=== PATIENT | female | born 1940 | race Caucasian/White ===

== ENCOUNTER 2016-11-06 14:36 | Observation (INO) ==
[2016-11-06] MEDS ORDERED: Ondansetron 4 MG/2 ML VIAL IV ONE (15:30)
[2016-11-06] MEDS ORDERED: 0.9 % Sodium Chloride 1,000 ML IVC ONE (15:30)
--- NOTE | 2016-11-06 15:40 | Emergency Department Note ---
Disposition Clinical Impression: Near syncope, Unstable angina Disposition: Admitted As Inpatient Condition: Good Time of Disposition: 18:13 General Adult HPI - General Chief complaint: ED Dizziness Stated complaint: BP low/lightheaded/dizzy Time Seen by Provider: 11/06/16 14:56 Source: patient Mode of arrival: ambulatory Limitations: no limitations Nursing Notes Reviewed: Yes Vital Signs Reviewed: Yes - History of Present Illness HPI Narrative: 76-year-old female history of chronic atrial fibrillation on Xarelto and metoprolol, hypertension, congestive heart failure presents to the ED with lightheadedness and near syncope. She reports on night she is being getting increasingly more lightheaded having the feeling of passing out. This is worse with sudden head movements as well as with walking. She denies any loss of consciousness, fall or head trauma. It has been getting progressively worse and she has also noticed some intermittent chest pain. Reports this is been ongoing for the past several weeks however now whenever he tries to exert herself such as just walking pain is worse and she needs to sit. Denies any history of stroke. Denies any history of blood clots. Denies any history of cardiac ischemic disease. She has been increasingly more nauseated with only a few episodes of emesis. She has only been eating saltine crackers over the last 24 hours. Reports that are cardiologists ordered to come be evaluated if these symptoms persist. Last stress test and heart catheterization performed several years ago were normal. Iron Piler is Dr. Reddy and Sheila Trent. Pain Scale: 5 - Related Data Home Medications Medication Instructions Recorded Confirmed Rivaroxaban [Xarelto] 20 mg PO HS 10/27/15 11/06/16 Acetaminophen [Tylenol Arthritis] 650 mg PO HS 11/06/16 11/06/16 Furosemide [Lasix] 20 mg PO HS 11/06/16 11/06/16 Metoprolol XL (24 HR) Succ [Toprol 50 mg PO HS 11/06/16 11/06/16 XL] Allergies Allergy/AdvReac Type Severity Reaction Status Date / Time Hydromorphone Allergy Unresponsiv Verified 12/21/15 12:42 e piroxicam [From Feldene] AdvReac Nausea Verified 12/21/15 12:42 All systems ED: reviewed and negative except as stated. Constitutional: Denies: fever, chills Cardiovascular: Reports: chest pain, dyspnea on exertion. Denies: palpitations Respiratory: Reports: dyspnea. Denies: cough Gastrointestinal: Reports: nausea, vomiting. Denies: abdominal pain, diarrhea, melena, hematochezia Genitourinary: Denies: urgency, dysuria Musculoskeletal: Denies: back pain, neck pain Integumentary: Denies: rash, abrasion Neurological: Reports: weakness. Denies: headache, confusion Past Medical History - Past Medical History Attestation: Yes The following information was validated with the patient. 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 - Social History Smoking Status: Never smoker Smokeless Tobacco Status: No Alcohol use: Reports: none Drug use: Reports: none Physical Exam - General Limitations: no limitations General appearance: alert, in no apparent distress - Head Head exam: atraumatic, normocephalic, normal inspection - Eye Eye exam: Present: normal appearance, PERRL, EOMI - ENT ENT exam: normal exam, normal oropharynx, mucous membranes dry - Neck Neck exam: Present: normal inspection, full ROM, trachea midline - Chest Chest inspection: Present: normal inspection, symmetric chest wall rise - Respiratory Respiratory exam: Present: normal lung sounds bilaterally. Absent: respiratory distress, wheezes - Cardiovascular Cardiovascular exam: Present: regular rate, irregular rhythm, normal heart sounds. Absent: systolic murmur, diastolic murmur - Abdominal Exam Abdominal exam: Present: soft, Non-Tender. Absent: tenderness, distention, guarding, rebound, rigidity - Extremities Exam Extremities exam: Present: normal inspection, full ROM, normal capillary refill. Absent: tenderness, pedal edema, calf tenderness - Neurological Exam Neurological exam: Present: alert, oriented X3, CN II-XII intact - Expanded Neurological Exam Patient oriented to: Present: person, place, time Speech: Present: fluid speech Cranial nerves: EOM function (II, III, IV, ): Normal, facial sensation (V): Normal, facial palsy (VII): Normal, gag reflex (IX): Normal, spinal accessory function (XI): Normal, tongue deviation (XII): Normal Cerebellar function: finger to nose: Normal, heel to cobos: Abnormal Left, Abnormal Right (limited to due arthritis in the legs) Motor strength - LUE: 5/5 Motor strength - RUE: 5/5 Motor strength - LLE: 5/5 Motor strength - RLE: 5/5 Upper motor neuron exam: tao neglect: Absent bilaterally, pronator drift: Absent bilaterally Sensory exam upper extremity: light touch: Normal Sensory exam lower extremity: light touch: Normal - Psychiatric Psychiatric exam: Present: normal affect, normal mood - Skin Skin exam: Present: warm, dry, intact, normal color. Absent: rash Course Course Narrative: 76-year-old female presents to the ED with complaints of chest pain dizziness and lightheadedness with nausea and vomiting. Over the past few days she has been experiencing lightheadedness with some associated chest pain. She takes her alto for atrial fibrillation. She denies any frequent or recent falls. She is tachycardic on initial presentation and his afebrile. Patient appears in no acute distress. The mucosal membranes appear dry. Heart is irregularly irregular. Lungs are clear to auscultation bilaterally abdomen is soft nontender nondistended. Neurologic exam is normal without any focal neural deficits. Cardiac workup initiated. EKG shows atrial fibrillation with normal ventricular response. - Reevaluation(s) Reevaluation #1: Patient attempted to go to the bathroom and experience dull pressure in the center of her chest which is different than before. Otherwise her labs look normal. EKG shows atrial fibrillation normal ventricular response [address] changes. Troponin is negative. Given these symptoms will likely admit for the near syncope and her unstable angina. Urine appears contaminated but concerning with few bacteria and some leuk esterase. Will not treat for UTI. Time: 17:06 - Consultations Consultation #1: Spoke with on-call hospitalist chelsy Davis to admit for near syncope and chest pain/unstable angina. No further orders at this time Time: 18:13 Vital Signs Temperature 97.7 F 11/06/16 14:38 Pulse Rate 105 11/06/16 14:38 Respiratory Rate 18 11/06/16 14:38 Blood Pressure 152/84 11/06/16 14:38 O2 Sat by Pulse Oximetry 95 11/06/16 14:38 Temperature 98.6 F 11/06/16 19:08 Pulse Rate 99 11/06/16 19:08 Respiratory Rate 20 11/06/16 19:08 Blood Pressure 165/65 11/06/16 19:08 O2 Sat by Pulse Oximetry 92 L 11/06/16 19:08 Oxygen Delivery Oxygen Delivery Room Air Medical Decision Making - Medical Records Medical records reviewed: Yes I reviewed the patient's medical records. - Lab Data Lab results reviewed: Yes I reviewed the patient's lab results. Result diagrams: 11/06/16 15:43 11/06/16 15:43 Lab Results 11/06/16 11/06/16 11/06/16 Range/Units 15:43 15:43 15:43 WBC 7.5 (4.3-11.1) K/mcL RBC 5.46 H (3.82-4.97) M/mcL Hgb 16.3 H (11.5-15.4) g/dL Hct 50.8 H (35.3-44.9) % MCV 93.0 (83.0-100.0) fL MCH 29.9 (28.0-33.3) pg MCHC 32.1 (31.6-35.5) g/dL RDW 13.1 (11.5-14.5) % Plt Count 230 (140-400) K/mcL MPV 10.6 (9.4-12.4) fL Immature Gran % 0.1 (0-4) % Seg Neutrophils % 59.6 % Lymphocytes % 30.6 % Monocytes % 8.4 % Eosinophils % 0.9 % Basophils % 0.4 % Neutrophils # 4.5 (1.6-8.9) K/mcL Lymphocytes # 2.3 (0.6-4.6) K/mcL Monocytes # 0.6 (0.0-1.3) K/mcL Eosinophils # 0.1 (0.0-0.6) K/mcL Basophils # 0.0 (0.0-0.2) K/mcL Sodium 140 (136-145) mEq/L Potassium 4.4 (3.5-4.5) mEq/L Chloride 105 (98-109) mEq/L Carbon Dioxide 28 (19-29) mEq/L BUN 19 (7-20) mg/dL Creatinine 0.87 (0.57-1.11) mg/dL Est GFR ( Amer) > 60 (> 60) Est GFR (Non-Af Amer) > 60 (> 60) BUN/Creatinine Ratio 22 (6-26) Glucose 115 H (70-99) mg/dL POC Glucose (58-89) Calculated Osmolality 293 (280-300) Calcium 9.5 (8.6-10.8) mg/dL Total Bilirubin 0.9 (0.2-1.2) mg/dL AST 21 (5-34) Units/L ALT 20 (0-55) Units/L Alkaline Phosphatase 77 (38-126) Units/L Troponin I 0.01 (0-0.03) ng/mL B-Natriuretic Peptide (0-100) pg/mL Serum Total Protein 7.8 (6.0-8.3) g/dL Albumin 3.5 (3.5-5.0) g/dL Globulin 4.3 H (2.4-3.5) g/dL Albumin/Globulin Ratio 0.8 L (1.1-2.2) Urine Color (Yellow) Urine Clarity (Clear) Urine pH (5.0-8.0) pH Units Ur Specific [place] (1.010-1.025) Urine Protein (Neg-Trace) mg/dL Urine Glucose (UA) (Normal) mg/dL Urine Ketones (Negative) mg/dL Urine Blood (Negative) Urine Nitrite (Negative) Urine Bilirubin (Negative) Urine Urobilinogen (Normal) mg/dL Ur Leukocyte Esterase (Negative) Urine Microscopic RBC (0-3) per hpf Urine Microscopic WBC (0-3) per hpf Ur Squamous Epith Cells (None-Few) per lpf Urine Bacteria (None-Few) per hpf Hyaline Casts (None-Few) per lpf Ur Culture Indicated? (NO) 11/06/16 11/06/16 11/06/16 Range/Units 15:43 16:00 17:24 WBC (4.3-11.1) K/mcL RBC (3.82-4.97) M/mcL Hgb (11.5-15.4) g/dL Hct (35.3-44.9) % MCV (83.0-100.0) fL MCH (28.0-33.3) pg MCHC (31.6-35.5) g/dL RDW (11.5-14.5) % Plt Count (140-400) K/mcL MPV (9.4-12.4) fL Immature Gran % (0-4) % Seg Neutrophils % % Lymphocytes % % Monocytes % % Eosinophils % % Basophils % % Neutrophils # (1.6-8.9) K/mcL Lymphocytes # (0.6-4.6) K/mcL Monocytes # (0.0-1.3) K/mcL Eosinophils # (0.0-0.6) K/mcL Basophils # (0.0-0.2) K/mcL Sodium (136-145) mEq/L Potassium (3.5-4.5) mEq/L Chloride (98-109) mEq/L Carbon Dioxide (19-29) mEq/L BUN (7-20) mg/dL Creatinine (0.57-1.11) mg/dL Est GFR ( Amer) (> 60) Est GFR (Non-Af Amer) (> 60) BUN/Creatinine Ratio (6-26) Glucose (70-99) mg/dL POC Glucose 95 H (58-89) Calculated Osmolality (280-300) Calcium (8.6-10.8) mg/dL Total Bilirubin (0.2-1.2) mg/dL AST (5-34) Units/L ALT (0-55) Units/L Alkaline Phosphatase (38-126) Units/L Troponin I (0-0.03) ng/mL B-Natriuretic Peptide 344 H (0-100) pg/mL Serum Total Protein (6.0-8.3) g/dL Albumin (3.5-5.0) g/dL Globulin (2.4-3.5) g/dL Albumin/Globulin Ratio (1.1-2.2) Urine Color Dark Yellow (Yellow) Urine Clarity Cloudy A (Clear) Urine pH 6.0 (5.0-8.0) pH Units Ur Specific [place] > 1.030 H (1.010-1.025) Urine Protein 30 H (Neg-Trace) mg/dL Urine Glucose (UA) Normal (Normal) mg/dL Urine Ketones Trace H (Negative) mg/dL Urine Blood Small H (Negative) Urine Nitrite Negative (Negative) Urine Bilirubin Small H (Negative) Urine Urobilinogen Normal (Normal) mg/dL Ur Leukocyte Esterase Trace H (Negative) Urine Microscopic RBC 0-3 (0-3) per hpf Urine Microscopic WBC 5-15 H (0-3) per hpf Ur Squamous Epith Cells Many H (None-Few) per lpf Urine Bacteria Few (None-Few) per hpf Hyaline Casts None Seen (None-Few) per lpf Ur Culture Indicated? YES A (NO) - Radiology Data Radiology results reviewed: Yes I reviewed the patient's radiology results. Chest X-Ray 11/06/16 15:20 IMPRESSION: No acute cardiac or pulmonary disease. D/ / Osman Bueno MD / Osman Bueno MD Interpreting Provider: Osman Bueno MD - EKG Data EKG #1 EKG attestation: Yes I reviewed and interpreted this EKG. EKG results narrative: EKG performed 1451 atrial fibrillation 84 bpm, there is some baseline artifacts but no acute ST elevations or depressions, or T-wave inversions. Compared old EKG performed 12/21/2015 which shows atrial fibrillation [address]-T wave changes which are consistent today. No acute ischemic changes. Attestation Statement - Attestation Attestation: For this encounter, I have reviewed the resident, PATENTED [employer] ASSEMBLER, or PA documentation, treatment plan, and medical decision making; and I have had face to face time with this patient. 76-year-old female presents after a near syncopal event. Patient states that she has felt increasingly lightheaded, weak, fatigued over the past month. Patient states that she has increasing chest pain with exertion. Patient states today she was ambulating and had chest pain in the left chest which did not radiate. It was associated with nausea, shortness of breath but denies diaphoresis. Patient states that these symptoms have been increasing over the past month and especially worse over the past few days. Patient has a history of atrial fibrillation which is rate controlled and she does takes her Xarelto. Patient had initial EKG which showed atrial fibrillation with a rate of 84 without evidence of STEMI. Initial troponin negative. Patient will be admitted to the hospital for unstable angina and chest pain rule out ACS.
[2016-11-06 15:50] LABS: Basophils % 0.4 %; Eosinophils # 0.1 K/mcL (0.0-0.6); Eosinophils % 0.9 %; Hematocrit 50.8 % (35.3-44.9); Hemoglobin 16.3 g/dL (11.5-15.4); Immature Granulocytes % 0.1 % (0-4); Lymphocytes # 2.3 K/mcL (0.6-4.6); Lymphocytes % 30.6 %; Mean Corpuscular HGB Conc 32.1 g/dL (31.6-35.5); Mean Corpuscular Hemoglobin 29.9 pg (28.0-33.3); Mean Platelet Volume 10.6 fL (9.4-12.4); Monocytes # 0.6 K/mcL (0.0-1.3); Monocytes % 8.4 %; Neutrophils # 4.5 K/mcL (1.6-8.9); Platelet Count 230 K/mcL (140-400); Red Blood Count 5.46 M/mcL (3.82-4.97); Red Cell Distribution Width 13.1 % (11.5-14.5); Segmented Neutrophils % 59.6 %
[2016-11-06 16:05] LABS: Alanine Aminotransferase 20 Units/L (0-55); Albumin 3.5 g/dL (3.5-5.0); Albumin/Globulin Ratio 0.8 (1.1-2.2); Alkaline Phosphatase 77 Units/L (38-126); Aspartate Amino Transferase 21 Units/L (5-34); BUN/Creatinine Ratio 22 (6-26); Bilirubin,Total 0.9 mg/dL (0.2-1.2); Blood Urea Nitrogen 19 mg/dL (7-20); Calcium 9.5 mg/dL (8.6-10.8); Carbon Dioxide 28 mEq/L (19-29); Chloride 105 mEq/L (98-109); Globulin 4.3 g/dL (2.4-3.5); Glucose 115 mg/dL (70-99); Osmolality,Calculated 293 (280-300); Potassium 4.4 mEq/L (3.5-4.5); Sodium 140 mEq/L (136-145); Total Protein 7.8 g/dL (6.0-8.3); eGFR For African Americans > 60 (> 60); eGFR For Non-African Americans > 60 (> 60)
[2016-11-06 16:26] LABS: Bilirubin,Urine Small (Negative); Blood,Urine Small (Negative); Clarity,Urine Cloudy (Clear); Color,Urine Dark Yellow (Yellow); Glucose,Urine (UA) Normal (Normal); Ketones,Urine Trace mg/dL (Negative); Leukocyte Esterase,Urine Trace (Negative); Nitrite,Urine Negative (Negative); Protein,Urine 30 mg/dL (Neg-Trace); Specific Gravity,Urine > 1.030 (1.010-1.025); Urobilinogen,Urine Normal (Normal)
[2016-11-06 16:28] LABS: Bacteria,Urine Few per hpf (None-Few); Hyaline Casts,Urine None Seen per lpf (None-Few); RBC,Urine 0-3 per hpf (0-3); Squamous Epithelial Cell,Urine Many per lpf (None-Few)
[2016-11-06] MEDS ORDERED: Naloxone 0.4 MG/ML INJ IVP PRN (21:08)
[2016-11-06] MEDS ORDERED: Acetaminophen 325 MG TABLET PO PRN (21:21)
[2016-11-06] MEDS ORDERED: Ondansetron 4 MG/2 ML VIAL IVP PRN (21:21)
--- NOTE | 2016-11-06 21:41 | Internal Med History&Physical ---
Date of Encounter: 11/06/16 Time of Encounter: 20:45 Assessment and Plan (1) Chest pain Current visit: Yes Status: Acute 1. Will trend troponins, EKG's, check ECHO, check Carotid Dopplers. 2. Will order stress test for hte morning and consult Cardiology. 3. Pain may be GI in nature. Will star H2 bocker therapy. 4. Continue home meds as appropriate. Qualifiers: Chest pain type: precordial pain Qualified Code(s): R07.2 - Precordial pain (2) Atrial fibrillation Current visit: No Status: Chronic 1. Continue Home meds as appropriate. 2. Consult Cardiology; patient may need Holter monitor as outpatient. Qualifiers: Atrial fibrillation type: chronic Qualified Code(s): I48.2 - Chronic atrial fibrillation (3) Vomiting Current visit: No Status: Acute 1. Will add H2 jasmyne for possible GERD symptoms. 2. Chronic. Monitor. 3. May need outpatient GI work-up. 4. May be due to UTI despite absence of symptoms. Urine culture received. Will start Rocephin. Qualifiers: Vomiting type: unspecified Nausea presence: with nausea Qualified Code(s) : R11.2 - Nausea with vomiting, unspecified (4) DVT prophylaxis Current visit: Yes Status: Acute 1. On home dose of Xarelto. Internal Medicine - H&P: HPI Chief complaint: CP; dizziness; nausea/vomiting Admitted From: Emergency Dept Plans for Post Hospital Care: Home History of present illness: Ms. Hudson is a 76 year old female who presents to the ER with complaints of chest pain, dizziness, lightheadedness, nausea, and vomiting. She has not had any syncope or falls. She has had a prior history of falling prior to her diagnosis of atrial fibrillation last year. Since then, however, she has had no significant falling or risk of falling. However, she has experienced some dizziness and lightheadedness lately associated with chest pain which brought her to come in. Workup in the ER was negative but she was admitted to hospital service for further workup and care. Of note, she does have an abnormal urinalysis. She denies any dysuria or hematuria. Upon my assessment patient, she feels well but she does admit to having had the above symptoms. She also complains of some GI upset she has had chronically for years. She has had a cholecystectomy in the past, but this did not improve her symptoms. She does not take any antacids or any H2 blockers. She denies any cough, fevers, diarrhea, headaches, or congestion. Past Med Surg Social Fam HX - Past Medical History Attestation: Yes The following information was validated with the patient. Source: patient, old records reviewed Medical history: arthritis, atrial fibrillation, CHF, fibromyalgia, GERD, glaucoma, hypertension Psychiatric history: anxiety, depression - Past Surgical History Surgical History: cholecystectomy, hysterectomy, orthopedic, other - Social History Smoking Status: Never smoker Smokeless Tobacco Status: No Alcohol use: none Drug use: none Current living situation: Home, With Family Activity Level: Independent ambulation Recent Out of Country Travel Within the Last 8 Weeks: No - Family History Mother Family Member Ethnicity: Non- Living Status: Hx Family Cardiac Disorders: Yes Hx Family Respiratory Disorders: No Hx Family Cancer: No Hx Family GI Disorders: No Hx Family Endocrine Disorder: No Hx Family Neuromuscular Disorders: No Hx Family Neurologic Disorders: No Hx Family HEENT Disorders: No Hx Family Autoimmune Disorders: No Internal Medicine - H&P: Meds Rivaroxaban [Xarelto] 20 mg PO HS 10/27/15 [History] Acetaminophen [Tylenol Arthritis] 650 mg PO HS 11/06/16 [History] Furosemide [Lasix] 20 mg PO HS 11/06/16 [History] Metoprolol XL (24 HR) Succ [Toprol XL] 50 mg PO HS 11/06/16 [History] Allergies Hydromorphone Allergy (Verified 12/21/15 12:42) Unresponsive piroxicam [From Feldene] Adverse Reaction (Verified 12/21/15 12:42) Nausea - Constitutional Constitutional: no chills, no fever(s), no night sweats - EENT Eyes: no blurry vision, no change in vision Ears: no ear pain, no tinnitus Nose, mouth and throat: no nasal congestion, no sinus pain, no sinus pressure, no sore throat - Cardiovascular Cardiovascular ROS IM: chest pain, irregular heart rhythm, lightheadedness, orthopnea, palpitations, no diaphoresis, no dyspnea, no dyspnea on exertion, no paroxysmal nocturnal dyspnea, no syncope - Respiratory Respiratory: no cough, no dyspnea, no hemoptysis, no wheezing, no chest congestion, no excessive phlegm production - Gastrointestinal Gastrointestinal: heartburn, nausea, vomiting, no abdominal pain, no diarrhea, no hematemesis, no hematochezia, no melena - Genitourinary Genitourinary: no dysuria, no flank pain, no hematuria - Musculoskeletal Musculoskeletal ROS IM: arthralgias, no back pain, no muscle weakness - Integumentary Integumentary IM: no rash, no jaundice - Neurological Neurological ROS: dizziness, no disequilibrium, no focal weakness, no frequent falls, no headache(s) - Psychiatric Psychiatric: no anxiety, no depression - Endocrine Endocrine IM: no polydipsia, no polyuria - Hematologic/Lymphatic Hematologic/Lymphatic: easy bruising, no lymphadenopathy - Allergic/Immunologic Allergic/Immunologic: GI upset with certain foods, no wheezing - Constitutional Vitals: Temp Pulse Resp BP Pulse Ox 98.6 F 99 20 165/65 92 L 11/06/16 19:08 11/06/16 19:08 11/06/16 19:08 11/06/16 19:08 11/06/16 19:08 General appearance: Present: cooperative, A&O X 3, pleasant, no acute distress, answers questions appropriately - Head Head exam: Present: atraumatic, normal inspection - Expanded Head Exam Head exam expanded: Absent: abrasion, contusion, general tenderness - Eye Eye exam: Present: EOMI, normal appearance, PERRL. Absent: scleral icterus Pupils: Present: normal accommodation - ENT ENT exam: Present: mucous membranes moist, normal exam, normal oropharynx - Neck Neck exam general surgery: Present: full ROM, supple. Absent: thyromegaly - Expanded Neck Exam Neck exam: Absent: carotid bruit - Respiratory Respiratory exam: Present: CTAB. Absent: chest wall tenderness, rales, respiratory distress, rhonchi, wheezes - Cardiovascular Cardiovascular exam: Present: irregular rhythm, +S1, +S2. Absent: diastolic murmur, systolic murmur - GI/Abdominal GI/Abdominal exam: Present: normal bowel sounds. Absent: guarding, hepatomegaly , mass, rebound, splenomegaly, tenderness - Extremities Exam Extremities exam: Present: full ROM, warm. Absent: calf tenderness, joint swelling, pedal edema - Back Exam Back exam: Present: normal inspection. Absent: CVA tenderness (L), CVA tenderness (R) - Neurological Exam Neurological exam: Present: alert, CN II-XII intact, oriented X3, no focal deficits, strengths equal and symetr throughout - Psychiatric Psychiatric exam: Present: normal affect, normal mood - Skin Skin exam: Present: dry, warm. Absent: rash Internal Med - H&P Results - Labs CBC & Chem 7: 11/06/16 15:43 11/06/16 15:43 - EKG Data -: EKG Interpreted by Myself - EKG Data Prior EKG available for review: yes When compared to previous EKG: there is no significant change EKG comments: 11/06/16 21:52 At[address]illation with subtle ST-T depression laterally - Diagnostic Studies Chest x-ray Status: image reviewed by me (negative) - VTE Reasons for not Prescribing Prophylaxis: Not indicated-Anticoagulated or INR therapeutic
[2016-11-06] MEDS: *HR* Rivaroxaban 10 MG TABLET PO SCH (23:00)
[2016-11-06] MEDS: Metoprolol XL (24 HR) Succ 50 MG TAB.ER.24H PO SCH (23:07)
[2016-11-06] MEDS: Famotidine 20 MG TABLET PO SCH (23:07)
[2016-11-07] MEDS: Aspirin 81 MG TAB.CHEW PO ONE ×3 (00:46→07:44)
[2016-11-07 04:26] LABS: Basophils % 0.4 %; Eosinophils # 0.1 K/mcL (0.0-0.6); Eosinophils % 1.5 %; Hematocrit 46.2 % (35.3-44.9); Hemoglobin 14.8 g/dL (11.5-15.4); Immature Granulocytes % 0.3 % (0-4); Lymphocytes # 2.5 K/mcL (0.6-4.6); Lymphocytes % 34.5 %; Mean Corpuscular Hemoglobin 30.3 pg (28.0-33.3); Mean Corpuscular Volume 94.5 fL (83.0-100.0); Mean Platelet Volume 11.4 fL (9.4-12.4); Monocytes # 0.7 K/mcL (0.0-1.3); Monocytes % 9.1 %; Neutrophils # 3.9 K/mcL (1.6-8.9); Platelet Count 208 K/mcL (140-400); Red Blood Count 4.89 M/mcL (3.82-4.97); Red Cell Distribution Width 13.2 % (11.5-14.5); Segmented Neutrophils % 54.2 %
[2016-11-07 04:43] LABS: Alanine Aminotransferase 16 Units/L (0-55); Albumin/Globulin Ratio 0.8 (1.1-2.2); Alkaline Phosphatase 70 Units/L (38-126); Aspartate Amino Transferase 20 Units/L (5-34); BUN/Creatinine Ratio 22 (6-26); Bilirubin,Total 0.6 mg/dL (0.2-1.2); Blood Urea Nitrogen 17 mg/dL (7-20); Calcium 8.6 mg/dL (8.6-10.8); Carbon Dioxide 25 mEq/L (19-29); Chloride 107 mEq/L (98-109); Chol/HDL Ratio 3.8 (0-4.9); Cholesterol 163 mg/dL (< 200); Glucose 115 mg/dL (70-99); HDL Cholesterol 43 mg/dL (40-59); LDL Cholesterol,Calculated 103 mg/dL (0-99); Magnesium 1.6 mg/dL (1.6-2.6); Osmolality,Calculated 290 (280-300); Potassium 3.9 mEq/L (3.5-4.5); Sodium 139 mEq/L (136-145); Triglycerides 87 mg/dL (< 150); eGFR For African Americans > 60 (> 60); eGFR For Non-African Americans > 60 (> 60)
[2016-11-07] MEDS ORDERED: Regadenoson 0.4 MG/5 ML SYRINGE IVP ONE (06:09)
[2016-11-07] MEDS ORDERED: Aspirin 81 MG TAB.CHEW ONE (06:32)
[2016-11-07] MEDS: Famotidine 20 MG TABLET PO SCH ×2 (09:32→21:29)
--- NOTE | 2016-11-07 10:34 | Cardiology Consult Note ---
Date of Encounter: 11/07/16 Time of Encounter: 10:00 Assessment and Plan (1) Chest pain Current Visit: Yes Status: Acute Presented with atypical chest pain. Has been chest pain free since admission. Troponin negative x3, no ECG changes when compared to previous. Reports [facility] 6-8 years ago, was told she had "no blockages." Negative nuclear stress test 11/2014. Most recent TTE showed preserved LV function, EF 50-55%. Regadenoson nuclear stress completed, results are pending. Further recommendation pending test results. Qualifiers: Chest pain type: precordial pain Qualified Code(s): R07.2 - Precordial pain (2) Dizziness Current Visit: Yes Status: Acute Reports near constant dizziness associated with nausea since evening. Telemetry reviewed: avg HR=88 atrial fibrillation. No pause, bradycardia, or episodes of RVR noted. Stress, TTE, and bilateral CUS pending. Of note, HM ordered as outpatient--to be applied on 11/22/16. (3) Atrial fibrillation Current Visit: Yes Status: Chronic Hx of persistent atrial fibrillation . Rate controlled on oral betablocker and anticoagulated on Xarelto. Denies abnormal or unusual bleeding. Of note, HM was ordered as outpatient for dizziness--to be applied on 11/22/16. Qualifiers: Atrial fibrillation type: persistent Qualified Code(s): I48.1 - Persistent atrial fibrillation Discussion w patient/family: The assessment and plan as outlined above was discussed with the patient and/or family members who expressed understanding and agreement. All questions were answered. Thank you for involving us in the care of your patient. Please call with any questions. The patient will be discussed and reviewed with Dr. Kaushik Perez; changes to be made accordingly. History of Present Illness Consult date: 11/07/16 Requesting physician: Ric Edwards Consult reason: Chest pain, dizziness Chief complaint: Dizziness History of present illness: Ms. Hudson is a 76 year old female with PMH significant for atrial fibrillation , HTN, obesity, GERD, and arthritis who presented to [facility] ED with complaints of worsening dizziness since evening. Reports symptoms worsen with position change and improve with sitting down. Associated symptoms including chest pressure and "hurt" that is intermittent--not related to exertion and typically occurs at rest. Also reports nausea and fatigue. Patient seen and examined in stress lab today--Regadenoson nuclear stress test ordered by primary team. Cardiology consulted for chest pain. ecent cardiac testing includes: TTE 10/28/15: LVEF 50-55% TTE 08/31/15: LVEF 55%. Moderately dilated left atrium. No significant valvular dysfunction Regadenoson Nuclear 11/2014: Perfusion imaging negative for ischemia or infarct, gated EF >70% Past Med Surg Social Fam HX - Past Medical History Attestation: Yes The following information was validated with the patient. Source: patient, old records reviewed Medical history: atrial fibrillation, glaucoma, hypertension Psychiatric history: anxiety, depression - Past Surgical History Surgical History: cholecystectomy, hysterectomy, orthopedic, other - Social History Smoking Status: Never smoker Smokeless Tobacco Status: No Alcohol use: none Drug use: none - Family History Mother Family Member Ethnicity: Non- Living Status: Hx Family Cardiac Disorders: Yes Hx Family Respiratory Disorders: No Hx Family Cancer: No Hx Family GI Disorders: No Hx Family Endocrine Disorder: No Hx Family Neuromuscular Disorders: No Hx Family Neurologic Disorders: No Hx Family HEENT Disorders: No Hx Family Autoimmune Disorders: No Medications and Allergies Rivaroxaban [Xarelto] 20 mg PO HS 10/27/15 [History] Acetaminophen [Tylenol Arthritis] 650 mg PO HS 11/06/16 [History] Furosemide [Lasix] 20 mg PO HS 11/06/16 [History] Metoprolol XL (24 HR) Succ [Toprol XL] 50 mg PO HS 11/06/16 [History] Allergies Hydromorphone Allergy (Verified 12/21/15 12:42) Unresponsive piroxicam [From Feldene] Adverse Reaction (Verified 12/21/15 12:42) Nausea All Systems Review: A 10-system review of systems was performed and is negative for pertinent findings except as documented above in the HPI. - Cardiovascular Cardiovascular: as per HPI Physical Examination Vital Signs, Last 4 Hours Temp Pulse Resp BP Pulse Ox 11/07/16 07:46 97.9 F 85 17 138/88 94 L General: Conversant, No Apparent Distress HEENT: Atraumatic, Normocephaly, Mucus Membranes Moist Cardiac: Other (irregularly irregular) Lungs: Normal Breath Sounds Neuro: Alert and responsive Abdomen: Soft Skin: No rashes noted on visualized skin Musculoskeletal: No Chest Wall Tenderness Extremities: No Edema, Normal Pulses Results 11/07/16 03:12 11/07/16 03:12 Lab Results 11/06/16 11/07/16 11/07/16 22:09 03:12 03:12 WBC 7.2 Hgb 14.8 D Hct 46.2 H Plt Count 208 Sodium Potassium Chloride Carbon Dioxide BUN Creatinine Glucose Calcium Magnesium Total Bilirubin AST ALT Alkaline Phosphatase Troponin I 0.01 0.01 11/07/16 03:12 WBC Hgb Hct Plt Count Sodium 139 Potassium 3.9 Chloride 107 Carbon Dioxide 25 BUN 17 Creatinine 0.79 Glucose 115 H Calcium 8.6 Magnesium 1.6 Total Bilirubin 0.6 AST 20 ALT 16 Alkaline Phosphatase 70 Troponin I Impressions Chest X-Ray 11/06/16 15:20 IMPRESSION: No acute cardiac or pulmonary disease. D/ / Osman Bueno MD / Osman Bueno MD Interpreting Provider: Osman Bueno MD Active Medications Acetaminophen (Tylenol) 650 mg PO Q6HR PRN PRN Reason: Mild Pain (1-3) Stop: 05/08/17 21:22 Docusate Sodium (Colace) 100 mg PO BID PRN PRN Reason: Constipation Stop: 05/08/17 21:22 Famotidine (Pepcid) 20 mg PO BID CHENCHO PRN Reason: Protocol Stop: 05/08/17 22:01 Last Admin: 11/07/16 09:32 Dose: Not Given Ceftriaxone Sodium 1,000 mg/ (Dextrose) 100 mls @ 200 mls/hr IVPB Q24H CHENCHO Stop: 05/08/17 22:01 Last Admin: 11/06/16 23:06 Dose: 200 mls/hr Metoprolol Succinate (Toprol Xl) 50 mg PO HS CHENCHO Stop: 05/08/17 21:31 Last Admin: 11/06/16 23:07 Dose: 50 mg Naloxone HCl (Narcan) 0.4 mg IVP Q2MIN PRN PRN Reason: Opioid Reversal Stop: 05/08/17 21:09 Ondansetron HCl (Zofran) 4 mg IVP Q8HR PRN PRN Reason: Nausea And Vomiting Stop: 05/08/17 21:22 Rivaroxaban (Xarelto) 20 mg PO HS CHENCHO Stop: 05/08/17 21:31 Last Admin: 11/06/16 23:00 Dose: 20 mg - Imaging and Cardiology Chest Xray: report reviewed Stress Test: pending, report reviewed Echo: pending, report reviewed Other Results: 12 hour tele: avg HR=88 Afib. No significant event noted. - EKG Interpretation EKG results cardiology: personally reviewed Consult Discharge Plan - Plan Referrals: Danny Valenzuela MD [Primary Care Provider] - (Requested 11-07-16)
--- NOTE | 2016-11-07 12:32 | ECHO - Doppler Report ---
Echo with Saline Contrast Name: Xenia Hudson Date of Study: 11/07/2016 Date: 1940 Ht: 67.0 in Medical Record#: [id number] Age: 76 Wt: 270.0 lb Gender: Female BSA: 2.3 Order #: [id number] Location: [facility] Room #: 2a22 Reading Physician: Rukhsana Luevano DO Job Recruiter: Dank Alvarez RDCS Ordering Physician: Ric Edwards MD Primary Physician: None Indications: Congestive heart failure Impressions: LVEF 50%. Indeterminate left venticular diastoic function Normal right ventricular size and function. No significant valvular dysfunction. No pulmonary hypertension. Saline contrast negative for IAS shunt, positive with color flow. Left Ventricular Wall Motion: Rest Echo Findings All wall segments showed normal motion. Findings: Study Quality * Technically sub-optimal due to body habitus. ECG Findings * Atrial fibrillation. Left Ventricle * Indeterminate diastolic function. * LVEF 50%. Aortic Valve * Aortic valve not well visualized. * No aortic stenosis. * Trace aortic regurgitation. Mitral Valve * Normal mitral valve structure. * No mitral stenosis. * Trace mitral regurgitation. Tricuspid Valve * Tricuspid valve not well visualized. * Trace tricuspid regurgitation. * Estimated RA pressure is 3 mmHg. * Estimated RVSP is 25 mmHg. * No pulmonary hypertension. Pulmonic Valve * Pulmonic valve is not well visualized. * No pulmonic stenosis. * Trace pulmonic regurgitation. Pulmonary Artery * Pulmonary artery not well visualized. Right Ventricle * Normal right ventricular structure and function. Left Atrium * Moderately dilated left atrium. Interatrial Septum * There is a PFO by color Doppler. * No evidence of PFO with agitated saline contrast. IVC * The IVC is not dilated. Pericardium * There is no pericardial effusion present. Right Atrium * Moderately dilated right atrium. Aorta * Normally sized aortic root. History Hypertension History of CAD/PTCA 10/28/15 a Previous Echo was performed. Measurements: BP: 165/ 65 2D Normal Values RVIDd: 2.90 cm <2.7 cm IVSd: 1.20 cm 0.6 - 1.0 cm LVIDd: 4.90 cm 3.7 - 5.6 cm LVPWd: 1.20 cm 0.6 - 1.1 cm LVIDs: 3.80 cm 1.5 - 3.6 cm AO: 2.70 cm < 4.0 cm %FS: 22.40 cm >25 % LA volume: Mitral Valve Peak E:.85 m/sec Peak E' Lat Jcarlos:10.3 cm/s Peak E' Med Jcarlos:4.87 cm/s E/E' Lat Ratio:8.3 E/E' Med Ratio:17.5 Tricuspid Valve TV Regurg Peak Grad: 22.00mmHg TV Regurg Peak Jcarlos: 2.35m/sec Updated by Rukhsana Luevano on 11/07/2016 12:11:46 PM electronically signed on 11/07/2016 12:27:24 PM with status of Final Wall Motion Jennings: 1=Normal, 2=Hypokinesis, 3=Akinesis, 4=Dyskinesis, 5=Aneurysmal, 6=Hyperkinetic, X=Not Visualized (Blank)=Missing
--- NOTE | 2016-11-07 12:32 | Nuclear Medicine Stress Report ---
Regadenoson Nuclear Stress Name: Xenia Hudson Date of Study: 11/07/2016 Date: 1940 Ht: 67.0 in Medical Record#: [id number] Age: 76 Wt: 270.0 lb Gender: Female Order #: [id number] Location: [facility] Room: [facility] Supervising Provider: Hamilton Rivera MD, [facility] Reading Physician: Rukhsana Luevano DO Ordering Physician: Jose Wadsworth DO Primary Care Physician: Danny Valenzuela M.D. Stress Technologist: Deepti Muller RRT,[facility] Conveyor Technician: Sebastián Pa Indications: Abnormal ECG Impression: Technically challenging study. Data compromised secondary to atrial fibrillation (27% beat rejection), patient motion and body habitus. During stress, there is mild worsening of resting perfusion in the anterior and anterolateral palacios. Findings suggest the presence of artifact (wall motion is normal). However, unable to rule out ischemia on this study due to stress perfusion abnormality (see Findings). No appreciable change in ECG with pharmacologic stress. Gated EF 51%. Visual evidence of TID. Gating and volumes may be compromised. History: Hypertension Stress Test Summary: Stress Test Type: Pharmacologic Regadenoson 0.4mg/5ml given IV Baseline Information: Initial Heart Rate: 81 Blood Pressure: 136/82 Stress Information: Test Terminated Due to (primary): As per protocol Maximum Blood Pressure: 118/62 Maximum Heart Rate: 109 Percent Maximum Heart Rate Achieved: 75 Double Product: 44538 METS Reached: 1 Symptoms: No chest symptoms Nuclear Summary: SPECT myocardial perfusion imaging using Tc99m Sestamibi given intravenously was performed at rest and following cardiac stress testing. The resting images were obtained following initial dose of 11.1 mCi. Following stress an additional dose of 33.1 mCi was given at peak exercise or 30 seconds post regadenoson infusion. Medication Given: Time Medication Dose Units Route Findings: Stress Note * Atrial fibrillation with controlled ventricular response prior to exam beginning. Nonspecific ST abnormalities. * No arrhythmias were noted during stress. * Patient had no chest pain during stress. * Pharmacologic stress ECG is negative for ischemia at level of heart rate achieved. No appreciable change in pharmacologic ECG during chemical infusion. Hemodynamic responses * Normal hemodynamic responses to pharmacologic stress. Study Quality * Technically difficult/limited study. 27% rejected beats, patient motion and body habitus. TID * There is visual transient ischemic dilatation. Volumes may be compromised. Lung Uptake * There is evidence of increase lung uptake. Left Ventricle * The left ventricle is not dilated. PERFUSION * There is a small to medium sized, primarily fixed perfusion defect of mild-moderate intensity involving the anterior and anterolateral palacios. Wall motion is normal, thus suggesting the presence of artifact. However, this becomes worse with stress. Cannot rule out mild ischemia in the anterior and anterolateral palacios during stress acquisition. * Other areas demonstrate normal rest and stress perfusion. Updated by Rukhsana Luevano on 11/07/2016 12:21:23 PM electronically signed on 11/07/2016 12:26:58 PM with status of Final
--- NOTE | 2016-11-07 13:05 | Electrocardiograph Report ---
[address] [place], [place] [address] Test Date: 2016-11-06 Pat Name: Xenia Hudson Department: 105 Room: 2A22 Gender: F Clinical Services Assistant: : 1940 Requested By: Kaushik Weaver Order Number: [id number] Reading MD: Kaushik Perez Measurements Intervals Timpson Rate: 84 P: CO: 0 QRS: -5 QRSD: 114 T: 81 QT: 400 QTc: 442 Interpretive Statements ATRIAL FIBRILLATION ST DEPRESSION, CONSIDER SUBENDOCARDIAL INJURY Electronically Signed On 11-07-2016 13:04:05 EDT by Kaushik Perez
--- NOTE | 2016-11-07 14:17 | Internal Med Progress Note ---
<Anthony Ortez - Last Filed: 11/07/16 14:30> Date of Encounter: 11/07/16 Time of Encounter: 14:17 - Assessment and plan (1) Diastolic CHF, chronic Current Visit: Yes Status: Acute Assessment and plan: Stable diastolic CHF, patient euvolemic Echo performed 11/07/2016 demonstrates LVEF 50%, indeterminate left ventricular diastolic function, normal right ventricular size and function, no significant valvular dysfunction, no pulmonary hypertension, saline contrast negative for IAS shunt positive for color flow. Plan: - Continue metoprolol XL 50 mg by mouth at bedtime - Continue home dose Lasix. (2) Chest pain Current Visit: Yes Status: Acute Assessment and plan: Patient admitted with symptoms of chest pain, which has been absent since admission. He underwent echocardiogram and stress test today. Troponins 3 are negative. Previous history of chest pain, cardiac history reviewed. Given presentation I am not convinced that this is cardiac related but patient does pose risk factors. SARA score (3) 13% risk Plan: -Awaiting final results of stress test. - We will discuss patient's resolve symptoms and imaging study with cardiology. Qualifiers: Chest pain type: precordial pain Qualified Code(s): R07.2 - Precordial pain (3) DVT prophylaxis Current Visit: Yes Status: Acute Assessment and plan: Xarelto 20mg daily (4) Atrial fibrillation Current Visit: Yes Status: Chronic Assessment and plan: Known Hx of Atrial fibrillation. Rhythm is stable currently. Plan: - Continue Beta jasmyne - Xarelto for anticoagulation. Qualifiers: Atrial fibrillation type: persistent Qualified Code(s): I48.1 - Persistent atrial fibrillation - Subjective Interval history: Patient was seen and evaluated at patient bedside this am. She is awake, alert interactive. She says her CP has resolved and she has not had any CP, chest pressure or any other concerning symptoms since admission. She says she has had chest pain in the past and work up has been negative thus far. She completed echocardiogram and stress test this morning with results pending. She has no further questions or concerns currently. - Constitutional Vitals: Temp Pulse Resp BP Pulse Ox 98.2 F 92 16 115/69 94 L 11/07/16 12:33 11/07/16 12:33 11/07/16 12:33 11/07/16 12:33 11/07/16 12:33 General appearance: Present: cooperative, A&O X 3, pleasant, no acute distress, answers questions appropriately - Head Head exam: Present: atraumatic, normocephalic - Eye Eye exam: Present: PERRL, conjuntiva pink, sclera anicteric Pupils: Present: PERRL - Neck Neck exam general surgery: Present: supple, trachea midline. Absent: lymphadenopathy - Respiratory Respiratory exam: Present: CTAB. Absent: accessory muscle use, rales, rhonchi, wheezes - Cardiovascular Cardiovascular exam: Present: irregular rhythm - GI/Abdominal GI/Abdominal exam: Present: normal bowel sounds, soft, no peritoneal signs. Absent: distended, tenderness - Extremities Exam Extremities exam: Present: warm, radial pulses palpable and symetrical. Absent : calf tenderness, cyanotic, pedal edema - Neurological Exam Neurological exam: Present: alert, oriented X3, no focal deficits. Absent: pronater drift, facial droop, speech deficit - Psychiatric Psychiatric exam: Present: normal affect, normal mood - Skin Skin exam: Present: dry, intact Internal Medicine: Result - Labs CBC & Chem 7: 11/07/16 03:12 11/07/16 03:12 Labs: Short CBC 11/07/16 Range/Units 03:12 WBC 7.2 (4.3-11.1) K/mcL Hgb 14.8 D (11.5-15.4) g/dL Hct 46.2 H (35.3-44.9) % Plt Count 208 (140-400) K/mcL Neutrophils # 3.9 (1.6-8.9) K/mcL BMP 11/07/16 03:12 Sodium 139 Potassium 3.9 Chloride 107 Carbon Dioxide 25 BUN 17 Creatinine 0.79 Glucose 115 H Calcium 8.6 Cardiac Enzymes 11/06/16 11/07/16 Range/Units 22:09 03:12 Troponin I 0.01 0.01 (0-0.03) ng/mL Liver Function 11/07/16 Range/Units 03:12 Total Bilirubin 0.6 (0.2-1.2) mg/dL AST 20 (5-34) Units/L ALT 16 (0-55) Units/L Alkaline Phosphatase 70 (38-126) Units/L Albumin 3.0 L (3.5-5.0) g/dL - VTE Reasons for not Prescribing Prophylaxis: Not indicated-Anticoagulated or INR therapeutic Consult Discharge Plan - Plan Referrals: Danny Valenzuela MD [Primary Care Provider] - (Requested 11-07-16) <Jose Wadsworth - Last Filed: 11/07/16 18:15> - Assessment and plan (1) Unstable angina Current Visit: Yes Status: Acute Assessment and plan: Awaiting final cardiology input in respect to stress test. (2) Diastolic CHF, chronic Current Visit: Yes Status: Acute (3) Atrial fibrillation Current Visit: Yes Status: Chronic Qualifiers: Atrial fibrillation type: persistent Qualified Code(s): I48.1 - Persistent atrial fibrillation (4) HTN (hypertension) Current Visit: No Status: Chronic Qualifiers: Hypertension type: essential hypertension Qualified Code(s): I10 - Essential (primary) hypertension (5) Morbid obesity with BMI of 40.0-44.9, adult Current Visit: Yes Status: Chronic - Constitutional Vitals: Temp Pulse Resp BP Pulse Ox 98.2 F 83 16 144/77 96 11/07/16 16:13 11/07/16 16:13 11/07/16 16:13 11/07/16 16:13 11/07/16 16:13 Internal Medicine: Result - Labs CBC & Chem 7: 11/07/16 03:12 11/07/16 03:12 Labs: Short CBC 11/07/16 Range/Units 03:12 WBC 7.2 (4.3-11.1) K/mcL Hgb 14.8 D (11.5-15.4) g/dL Hct 46.2 H (35.3-44.9) % Plt Count 208 (140-400) K/mcL Neutrophils # 3.9 (1.6-8.9) K/mcL BMP 11/07/16 03:12 Sodium 139 Potassium 3.9 Chloride 107 Carbon Dioxide 25 BUN 17 Creatinine 0.79 Glucose 115 H Calcium 8.6 Cardiac Enzymes 11/06/16 11/07/16 Range/Units 22:09 03:12 Troponin I 0.01 0.01 (0-0.03) ng/mL Liver Function 11/07/16 Range/Units 03:12 Total Bilirubin 0.6 (0.2-1.2) mg/dL AST 20 (5-34) Units/L ALT 16 (0-55) Units/L Alkaline Phosphatase 70 (38-126) Units/L Albumin 3.0 L (3.5-5.0) g/dL - Attending Attestation I examined this patient and my medical decision-making was reviewed with the Resident Physician on 11/07/16. I agree with the documented findings, disposition and treatment plan as described except to the extent set forth below. Ms. Hudson is currently in observation for chest pain and diastolic CHF. She is moderate risk due to potential for worsening cardiac status. Ms. Hudson had stress test today. Awaiting final cardiology input/plan Exam Alert Comfortable Heart not tachy No wheeze I/P 1. Chest pain - awaiting final plan 2. Diastolic CHF further diagnoses and plan as above.
[2016-11-07] MEDS ORDERED: Furosemide 20 MG TABLET PO PRN (14:38)
--- NOTE | 2016-11-07 17:08 | Carotid Imaging Report ---
Carotid Duplex Patient Name:Xenia Hudson Order Number:[id number] Procedure Date:11/07/2016 Date:2Age:76 yrs Gender:Female Rt.BP:153 / 80 mmHgHeart Rate: Location:[facility] Room #: 2a22 Fitter Tacker:Dank Alvarez, EMANUEL Referring MD:Ric Edwards MD sleeve setter:None Reading MD:Roby Stephenson MD Primary Indications:Occlusion and stenosis of carotid artery without mention of cerebral infarction Impressions: Findings: Bilateral carotid system has nonstenotic plaque. Findings Carotid Duplex: Right: The right proximal common carotid artery has a PSV of 79 cm/s and a EDV of 13 cm/s. The right mid common carotid artery has a PSV of 66 cm/s and a EDV of 15 cm/s. The right distal common carotid artery has a PSV of 65 cm/s and a EDV of 17 cm/s. The right bifurcation has a PSV of 49 cm/s and a EDV of 12 cm/s. There is smooth heterogeneous plaque. The right proximal internal carotid artery has a PSV of 54 cm/s and a EDV of 18 cm/s. The right mid internal carotid artery has a PSV of 76 cm/s and a EDV of 27 cm/s. The right distal internal carotid artery has a PSV of 78 cm/s and a EDV of 27 cm/s. The right eca has a PSV of 82 cm/s and a EDV of 13 cm/s. Left: The left proximal common carotid artery has a PSV of 75 cm/s and a EDV of 16 cm/s. The left mid common carotid artery has a PSV of 61 cm/s and a EDV of 19 cm/s. The left distal common carotid artery has a PSV of 59 cm/s and a EDV of 20 cm/s. The left bifurcation has a PSV of 43 cm/s and a EDV of 16 cm/s. There is smooth heterogeneous plaque. The left proximal internal carotid artery has a PSV of 39 cm/s and a EDV of 13 cm/s. The left mid internal carotid artery has a PSV of 84 cm/s and a EDV of 30 cm/s. The left distal internal carotid artery has a PSV of 82 cm/s and a EDV of 27 cm/s. The left eca has a PSV of 86 cm/s and a EDV of 12 cm/s. The left vertebral artery has a PSV of 52 cm/s and a EDV of 14 cm/s. Prior Study: No change compared to prior study dated: 10/28/2015. Carotid Results Right PSV EDV Assessment Proximal CCA 79 13 Mid CCA 66 15 Distal CCA 65 17 Bifurcation 49 12 Non Stenotic Plaque Proximal ICA 54 18 Mid ICA 76 27 Distal ICA 78 27 ECA 82 13 Left PSV EDV Assessment Proximal CCA 75 16 Mid CCA 61 19 Distal CCA 59 20 Bifurcation 43 16 Non Stenotic Plaque Proximal ICA 39 13 Mid ICA 84 30 Distal ICA 82 27 ECA 86 12 Vertebral Artery 52 14 Ratio's Right ICA/CCA Ratio: 1.18 ICA/CCA Values: 78/66 Left ICA/CCA Ratio: 1.38 ICA/CCA Values: 84/61 Updated by Roby Stephenson MD on 11/07/2016 5:01:34 PM electronically signed on 11/07/2016 5:01:50 PM with status of Final
[2016-11-07] MEDS: *HR* Rivaroxaban 10 MG TABLET PO SCH (21:29)
[2016-11-07] MEDS: Metoprolol XL (24 HR) Succ 50 MG TAB.ER.24H PO SCH (21:29)
[2016-11-08 04:53] LABS: Basophils % 0.3 %; Eosinophils # 0.1 K/mcL (0.0-0.6); Eosinophils % 2.2 %; Hematocrit 46.8 % (35.3-44.9); Hemoglobin 14.6 g/dL (11.5-15.4); Immature Granulocytes % 0.3 % (0-4); Lymphocytes # 2.3 K/mcL (0.6-4.6); Mean Corpuscular HGB Conc 31.2 g/dL (31.6-35.5); Mean Corpuscular Hemoglobin 29.4 pg (28.0-33.3); Mean Corpuscular Volume 94.2 fL (83.0-100.0); Mean Platelet Volume 11.2 fL (9.4-12.4); Monocytes # 0.6 K/mcL (0.0-1.3); Monocytes % 9.1 %; Platelet Count 212 K/mcL (140-400); Red Blood Count 4.97 M/mcL (3.82-4.97); Segmented Neutrophils % 50.1 %
[2016-11-08 05:17] LABS: Alanine Aminotransferase 17 Units/L (0-55); Albumin/Globulin Ratio 0.8 (1.1-2.2); Alkaline Phosphatase 67 Units/L (38-126); Aspartate Amino Transferase 21 Units/L (5-34); BUN/Creatinine Ratio 16 (6-26); Bilirubin,Total 0.6 mg/dL (0.2-1.2); Blood Urea Nitrogen 13 mg/dL (7-20); Calcium 8.7 mg/dL (8.6-10.8); Carbon Dioxide 25 mEq/L (19-29); Chloride 106 mEq/L (98-109); Globulin 3.9 g/dL (2.4-3.5); Glucose 100 mg/dL (70-99); Osmolality,Calculated 290 (280-300); Sodium 140 mEq/L (136-145); Total Protein 6.9 g/dL (6.0-8.3); eGFR For African Americans > 60 (> 60); eGFR For Non-African Americans > 60 (> 60)
[2016-11-08] MEDS ORDERED: *HR* Morphine 2 MG/ML SYRINGE IVP PRN (06:10)
--- NOTE | 2016-11-08 06:14 | Event Note ---
Date of Encounter: 11/08/16 Time of Encounter: 06:12 RN called stating patient complained of chest pain/pressure. I ordered EKG, Troponin, and Morphine PRN chest pain. Cardiology following and patient had stress test yesterday with vague results. Will ask daytime hospitalist to review with cardiology.
[2016-11-08] MEDS: Famotidine 20 MG TABLET PO SCH (07:57)
[2016-11-08] MEDS ORDERED: *HR* Promethazine 25 MG/ML VIAL IVP ONE (08:08)
--- NOTE | 2016-11-08 10:24 | Event Note ---
Date of Encounter: 11/08/16 Time of Encounter: 10:10 - Cardiology Event Note Seen and examined. Reports chest pain/pressure associated with nausea and vomiting that started this AM around 4. Troponin negative. Last dose of Xarelto yesterday evening around 9PM (persistent atrial fibrillation) Kidney function normal. No events noted per telemetry review. Given abnormal stress testing findings and persistent chest discomfort, recommend proceeding with LHC. Alternatives, risks, and benefits with LHC with possible PCI discussed with patient, she is agreeable to proceed. Patient was discussed and reviewed with Dr. Rivera.
[2016-11-08 11:21] LABS: Prothrombin Time 21.8 Seconds (9.4-12.1)
[2016-11-08] MEDS ORDERED: 0.9 % Sodium Chloride 1,000 ML ONE ×2 (11:23→11:38)
[2016-11-08] MEDS ORDERED: Verapamil 5 MG/2 ML VIAL ONE (11:38)
[2016-11-08] MEDS ORDERED: Nitroglycerin 1,000 MCG/10 ML VIAL IV ONE (11:39)
[2016-11-08] MEDS ORDERED: Heparin 1,000 UNITS/500 mL NS 500 ML ONE (11:39)
[2016-11-08] MEDS ORDERED: *HR* Heparin 10,000 UNIT/10 ML VIAL ONE (11:39)
--- NOTE | 2016-11-08 11:51 | Pre-Sedation Evaluation ---
Pre-sedation evaluation - Pre-sedation checklist Date of procedure: 11/08/16 Procedure: [facility] Recent Vitals: Last Vital Signs Temp 98.0 F 11/08/16 11:08 Pulse 89 11/08/16 11:08 Resp 17 11/08/16 11:08 BP 112/65 11/08/16 11:08 Pulse Ox 92 L 11/08/16 11:08 H&P (including ROS) documented in medical record: Yes Previous reaction to sedatives/anesthetics: No Dietary Status: NPO after Midnight Airway Assessment: Patient can open mouth completely, TMJ function normal Dentition: No loose teeth or bridges ASA Classification *see protocol: CLASS II-Mild systemic disease Plan of Care: Pt appropriate candidate for procedure/moderate/conscious sedation , Risks/benefits of procedure/sedation discussed w/ patient/family
[2016-11-08] MEDS ORDERED: *HR* FentaNYL (PF) 100 MCG/2 ML VIAL ONE (12:04)
[2016-11-08] MEDS ORDERED: *HR* Midazolam HCl 2 MG/2 ML VIAL ONE (12:04)
--- NOTE | 2016-11-08 12:47 | Invasive Diagnostic Lab Proc ---
Name: Xenia Hudson Date of Study: 11/08/2016 Date: 1940 Ht: 66.9in Medical Record#: [id number] Age: 76 Wt: 271.17lb Gender: Female BSA: 2.3 Order #: [id number] BMI: 42.56 Physicians Procedure Physician: Kwesi Delatorre MD, [facility] Referring MD: Referring MD: Staff Name Position Time In Shima Handy RT (R) Monitor 11:42 AM Jennifer Timmons RN Red Cap 11:42 AM Henrietta Forte RN Scrub 11:42 AM Indications Indication Abnormal Test - Stress Procedures Performed Procedure L HRT ARTERY/VENTRICLE ANGIO Pre-Procedure Checklist Informed consent is complete signed and on chart. H\\T\\P is on chart. ID band is on and ID verified with patient. Patient NPO for procedure The procedure was described for the patient and questions were answered. Blood Pressure: 143/87 ECG is on chart. Rhythm: Atrial Fibrillation Plan of Care Patient will tolerate the procedure without complications. Adequate level of comfort will be maintained. Hemodynamics will remain stable Patient will recover from procedure without complications. Respiratory function will be maintained. Cardiac rhythm will remain stable. Patient temperature will be maintained. Patient and/or family have verbalized understanding of the procedure. Patient Education Chief Complaint/Reason for Test: Cardiac Cath Developmental Category: Geriatric (65+ years) Developmentally Appropriate for Age: Yes Learning Barriers: None Education Needs: Procedure Education Method: Verbal Information Taught: Cardiac Cath Educational Evaluation: Able to repeat information Intravenous Access Time IV Size Location DC'd Fluid/Drip Rate Units RN 10:48 AM 20g 1 1/" Patent On Arrival Rt Antecubital 0.9NaCl 25 ml/hr Henrietta Forte RN Allergies piroxicam Hydromorphone Vital Signs Time BP (mmHg) HR (bpm) O2 Sat. RR (bpm) LOC 10:49 AM 143 / 87 88 96 % 16 5 = Fully awake and oriented or at pre-proc level 12:07 PM / % 4 = Oriented but drowsy 12:07 PM / % 4 = Oriented but drowsy 12:02 PM 166 / 108 89 95 % 11 12:07 PM 153 / 99 86 98 % 12 12:12 PM 145 / 91 85 88 % 17 12:17 PM 147 / 92 79 98 % 13 12:22 PM 115 / 79 101 99 % 14 12:27 PM 130 / 73 94 98 % 15 12:22 PM / % 4 = Oriented but drowsy Procedural Medications Time Medication Dose Units Method Given By 12:06 PM Versed 2 mg Intravenous Jennifer Timmons RN 12:06 PM Fentanyl 25 mcg Intravenous Jennifer Timmons RN 12:07 PM Oxygen 2 L/min nasal cannula Jennifer Timmons RN 12:09 PM Oxygen 6 L/min simple face mask Jennifer Timmons RN 12:10 PM Oxygen 8 L/min simple face mask Jennifer Timmons RN 12:11 PM Oxygen 10 L/min nasal cannula Jennifer Timmons RN 12:19 PM Lidocaine 2% 0.5 ml Subcutaneous Kwesi Delatorre MD, FACC 12:20 PM Heparin 4000 units Nitroglycerin 200 mcg Verapamil 2.5 mg Intraarterial Kwesi Delatorre MD, [facility] ASA Classification: CLASS II- Mild systemic disease (i.e. well-controlled diabetes, hypertension, asthma, cigarette smoking) Vanda Score Preprocedure Postprocedure Activity 2- Moves 4 extremities sustained head lift Activity 2- Moves 4 extremities sustained head lift Circulation 2- SBP +/= 20 points of pre-anesthetic level Circulation 2- SBP +/= 20 points of pre-anesthetic level Consciousness 2- Awake and alert oriented x 3 Consciousness 2- Awake and alert oriented x 3 O2 Saturation 2- Able to maintain O2 satruation of 92% on room air O2 Saturation 2- Able to maintain O2 satruation of 92% on room air Respiratory 2- Able to deep breathe and cough well Respiratory 2- Able to deep breathe and cough well Total Score 10 Total Score 10 Contrast Agent: Isovue Diagnostic Contrast: 72 ml Total Contrast: 72 ml Fluoro Dose: 310 mGy Procedure Log Time Note Enter By 11:42 AM Shima Handy RT (R) Position: Monitor Time in: 11:42 tiffany 11:42 AM Jennifer Timmons RN Position: Red Cap Time in: 11:42 tiffany 11:42 AM Henrietta Forte RN Position: Scrub Time in: 11:42 tiffany 11:42 AM Patient charges- Angio tray pack, Navilyst 3mm J, Pulse Oximetry and ACIST tubing and transducer [facility] 11[facility]42 AM IV Supplies used: J loop Angio Cath. 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 well-controlled diabetes, hypertension, asthma, cigarette smoking) ejohnson 11:57 AM Meet and greet completed ejohnson 11:57 AM Sign in performed according to hospital policy. ejohnson 11:57 AM Procedure start 11:57 ejohnson 12:01 PM Vitals capture started with the following parameters, Patient=Adult, Interval=5 min, Initial Rgiifsst=021 mmHg, Deflation Rate=5 mmHg, Cuff placed on Left Arm 12:02 PM HR=89 bpm, ZIAB=023/108 mmhg, SpO2=95.0 %, Resp=11 B/min, Comment=A-fib 12:06 PM Time: 12:06 Versed 2 mg Intravenous Given by Jennifer Timmons RN 12:06 PM Time: 12:06 Fentanyl 25 mcg Intravenous Given by Jennifer Timmons RN 12:07 PM Time: 12:07 Oxygen on at 2 L/min per nasal cannula by Jennifer Timmons RN 12:07 PM Time: 12:07 Patient comfortable and pain free: Yes [facility] 12:07 PM Time: 12:07LOC: 4 = Oriented but drowsy [facility] 12:07 PM HR=86 bpm, ZXDB=924/99 mmhg, SpO2=98.0 %, Resp=12 B/min, Comment=A-fib 12:07 PM Clinical Presentation: Unstable angina [facility] 12:10 PM Time: 12:09 Oxygen on at 6 L/min per simple face mask by Jennifer Timmons RN 12:10 PM Pressure channel 1 zeroed. 12:10 PM Time: 12:10 Oxygen on at 8 L/min per simple face mask by Jennifer Timmons RN 12:12 PM Time: 12:11 Oxygen on at 10 L/min per nasal cannula by Jennifer Timmons RN 12:12 PM HR=85 bpm, GCRS=175/91 mmhg, SpO2=88.0 %, Resp=17 B/min, Comment=A-fib 12:17 PM HR=79 bpm, EMDL=121/92 mmhg, SpO2=98.0 %, Resp=13 B/min, Comment=A-fib 12:18 PM Time out performed according to hospital policy dspell: PM Time: 12: 0.5 ml Lidocaine 2% to right radial Subcutaneous Given by Kwesi Delatorre MD, [facility] 12:20 PM Access obtained by percutaneous puncture. 5Fr 10cm Terumo Glidesheath sheath placed in right Radial artery. [id number] [facility] 12:20 PM Time: 12:20 Patient given 4,000 units Heparin, 200 mcg Nitroglycerin, and 2.5 mg Verapamil Intraarterial by Kwesi Delatorre MD, [facility] 12:20 PM 5Fr TIG catheter inserted over the wire [facility] : PM 0.035 260cm Navilyst 3mmJ wire [id number] [facility] 12: PM Pressure channel 1 zeroed. 12:22 PM LCA angiography performed in multiple views. [facility] PM Time: 12:07LOC: 4 = Oriented but drowsy dspellwing 12:22 PM HR=121 bpm, OGKH=290/79 mmhg, SpO2=99.0 %, Resp=14 B/min, Comment=A-fib 12: PM Time: 12:07 Patient comfortable and pain free: Yes dspellwing 12:23 PM Recorded Pressure: Ao, HR=91, Condition=Condition 1 (Aorta) Ao 106/79/92 12:24 PM Recorded Pressure: Ao, HR=90, Condition=Condition 1 (Aorta) Ao 106/80/93 12:25 PM Lesion found in Mid LAD. Pre Stenosis: 50 Pre SARA Flow: dspellman 12:25 PM Mid/Distal Left Anterior Descending Coronary Artery and diagonal branches with 50% stenosis. If graft is supplying this area, 0 % stenosis dspellwing 12: PM Lesion found in Proximal RCA. Pre Stenosis: 50 Pre SARA Flow: dspellman 12: PM Coronary Dominance: Left dspellman 12:26 PM Catheter removed dspellman 12:27 PM 5Fr Pigtail catheter inserted over the wire [facility] 12:27 PM HR=94 bpm, JKEN=135/73 mmhg, SpO2=98.0 %, Resp=15 B/min, Comment=A-fib 12:27 PM Catheter selectively placed in left ventricle dspell 12:28 PM Bolus angiogram of left Ventricle complete: 10 ml/sec for a total of 20 mls dspellman 12:28 PM Recorded Pressure: LV, HR=93, Condition=Condition 1 (Left Ventricle) LV 118/9/16 12:28 PM Recorded Pressure: LV, Ao, HR=87, Condition=Condition 1 (Left Ventricle) LV 134/16/47, (Aorta) Ao 134/75/102 12:31 PM Catheter removed dspell 12:31 PM Procedure completed at 12:31 dspellman 12:32 PM Sign out completed: Radiation Dose 310.37 mGy Fluoro Time: 1.3 Isovue 370 - 200ml contrast 71.6 ml given by Kwesi Delatorre MD, [facility]. Complications: NoneCardiac Rehab Consult needed: NoConfirmed administered medications: Yes dspellman 12:32 PM Isovue 370 - 200ml,1 Bottle(s) used. dspellman 12:32 PM Vitals capture stopped. 12:32 PM Arterial sheath pulled, Vasc Band closure device used and was Successful S/N. dspellman 12:32 PM 11 ml air in Vasc Band. dspellman 12:32 PM Post ECG Atrial Fibrillation dspellman 12:33 PM Post Blood Pressure 130/73 dspellman 12:33 PM 12:33 Post Pulses Rt Radial 2+ dspellman 12:33 PM Information taught Cardiac Cath and Vasc Band dspellman 12:33 PM Education needs Procedure, Plan of Care, and Responsibilities of Patient in Care dspell 12:33 PM Learning barriers :None dspell 12:33 PM Education Methods Verbal dspellman 12:33 PM Education evaluation Able to repeat information dspell 12:34 PM Site status No bleeding/hematoma - Rt Wrist as reported by Henrietta Forte RN at 12:33 dspellman 12:34 PM Opsite applied dspellman 12:36 PM Report given to Nga SILVA Pt taken to 2A Room #22. 12:34 dspellman 12:36 PM Delay to floor No dspellman 12:36 PM Patient out of room: 12:36 dspellman 12:37 PM Family placed in No one available. dspellman 12:37 PM Complications: None dspellman 12:37 PM Fluoro Time: 1.3 dspellman 12:37 PM Isovue 370 - 200ml contrast 71.6 ml given by Kwesi Delatorre MD, [facility]. [facility] 12:37 PM Time: 12:22 Patient comfortable and pain free: Yes [facility] 12:[facility] PM Time: 12:22LOC: 4 = Oriented but drowsy [facility] 12:37 PM Radiation Dose 310.37 mGy tiffany Complications Complication None None None Hemodynamics Pressures Site Systolic/A Wave Diastolic/V Wave Mean AO 106 79 92 AO 106 80 93 LV 118 9 16 LV 134 16 47 AO 134 75 102 Post Procedure Information Blood Pressure: 130/73 mmHg Rhythm: Atrial Fibrillation Post procedural instructions were given Closure Device Time Device Success/Fail 11/08/2016 12:38:00 PM Mechanical Compression Successful Site Checks Time Location Status Staff Sheath In? Note 12:33 PM Rt Wrist No bleeding/hematoma Henrietta Forte RN Pulses Time Site Pre-Procedure Post-Procedure Note 11/08/2016 10:48:00 AM Bilateral DP \\T\\ PT 2+ Bilateral radial 2+ 12:33:00 PM Rt Radial 2+ Updated by Shima Handy RT (R) on 11/08/2016 12:42:09 PM RT Jillian electronically signed on 11/08/2016 12:42:52 PM with status of Final
--- NOTE | 2016-11-08 12:50 | Event Note ---
Date of Encounter: 11/08/16 Time of Encounter: 12:45 - Cardiology Event Note LHC: non-obstructive CAD Recommend further work-up to determine etiology of chest discomfort and n/v; consider GI. Continue betablocker for rate control of atrial fibrillation and Xarelto for AC. No further inpatient testing from Cardiology standpoint recommended. Cardiology will sign-off, follow-up as outpatient in 3-4 weeks. Discussed and reviewed with Dr. Rivera.
[2016-11-08] MEDS ORDERED: Metoprolol XL (24 HR) Succ 50 MG TAB.ER.24H PO SCH (13:03)
--- NOTE | 2016-11-08 13:07 | Electrocardiograph Report ---
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
--- NOTE | 2016-11-08 15:01 | Discharge Summary ---
<Anthony Ortez - Last Filed: 11/09/16 17:25> Date of Encounter: 11/08/16 Time of Encounter: 14:59 - Discharge Diagnosis (1) Diastolic CHF, chronic Priority: Primary Status: Acute (2) Chest pain Priority: Primary Status: Acute Qualifiers: Chest pain type: precordial pain Qualified Code(s): R07.2 - Precordial pain (3) DVT prophylaxis Priority: Secondary Status: Acute (4) Atrial fibrillation Priority: Secondary Status: Chronic Qualifiers: Atrial fibrillation type: persistent Qualified Code(s): I48.1 - Persistent atrial fibrillation - Discharge Medications Prescriptions: Atorvastatin [Lipitor] 40 mg PO HS #30 tablet Home Medications: Rivaroxaban [Xarelto] 20 mg PO HS 10/27/15 [History] Acetaminophen [Tylenol Arthritis] 650 mg PO HS 11/06/16 [History] Furosemide [Lasix] 20 mg PO HS 11/06/16 [History] Metoprolol XL (24 HR) Succ [Toprol Xl] 50 mg PO HS 11/06/16 [History] Atorvastatin [Lipitor] 40 mg PO HS #30 tablet 11/08/16 [Rx] Allergies/Adverse Reactions: Allergies Hydromorphone Allergy (Verified 12/21/15 12:42) Unresponsive piroxicam [From Feldene] Adverse Reaction (Verified 12/21/15 12:42) Nausea Procedures/tests Complete & Pending: Procedures Performed prior 72 hours Category Date Time Status CL Cardiac Catheterization [CL] Routine Sagger Preparer 11/08/16 10:25 Ordered NM omar perf SPECT multi [NM] Routine Exams 11/06/16 21:26 Taken ECG 12 lead ECG [ECG] AM 0600 Y 11/07/16 06:00 Ordered ECG 12 lead ECG [ECG] Routine Y 11/08/16 06:14 Completed EV carotid duplex imaging BI Routine Y 11/06/16 21:21 Completed EV echocardiogram Routine Y 11/06/16 21:21 Completed SP pharm nuclear stress Routine Y 11/06/16 21:21 Completed Date of admission: 11/06/16 18:16 Primary care physician: Danny Valenzuela MD Consults: 11/06/16 21:25 Consult to Physician [CONS] Routine Consulting Provider: Kaushik Perez Reason for Consult: CP; recent stress test negative; A fib Call Completed: No Discharging clinician: Anthony Ortez Anticipated date of discharge: 11/08/16 - Patient Status Disposition: Home, Self-Care Condition: Good Functional capacity at discharge: independent ambulation Overall status at discharge: patient is progressing back to baseline - Discharge Instructions Instructions: Left Heart Catheterization (DC) Follow Up With: Danny Valenzuela MD [Primary Care Provider] - 11/15/16 1:00 pm () Additional Instructions: I recommend follow-up with cardiology in 3-4 weeks as requested. I recommend follow-up with her primary care provider next 3-5 days. Take prescriptions as prescribed. - Diet and Activity Activity: increase activity as tolerated Diet: low salt diet Interval History: This benefit 76-year-old female with past medical history of arthritis, atrial fibrillation, CHF, GERD, glaucoma, hypertension, fibromyalgia was admitted to the general medical floor with chest pain. She is placed on telemetry, started on anticoagulation, EKG was collected without any new changes. Patient continued to have intermittent episodes of chest discomfort during inpatient stay was seen and evaluated by cardiology. Troponins were nonsignificant 4, carotid imaging demonstrated non-obstructive plaques, echocardiogram completed demonstrated LVEF 50%, indeterminate left ventricular diastolic function, normal right ventricular size and function, no significant valvular dysfunction , no pulmonary hypertension, saline contrast negative for IES shunt, positive with color-flow. Left ventricular wall motion all wall segments showed normal motion. Patient continued to have chest discomfort and underwent nuclear stress test demonstrating abnormalities and thus went underwent left heart catheterization that did not require any stent placements or further intervention. Patient's medications were reviewed and her Xarelto dose was increased to 20 mg by mouth at bedtime for appropriate anticoagulation with atrial fibrillation. On 11/08/2016 she was seen and evaluated patient bedside and deemed stable for discharge with close follow-up with cardiology and her primary care physician. Hospital course: Ms. Hudson is a 76 year old female - Time Spent with Patient Total time spent providing and/or coordinating discharge services: - Constitutional Vitals: Temp Pulse Resp BP Pulse Ox 97.7 F 68 16 130/84 98 11/08/16 12:45 11/08/16 14:15 11/08/16 14:15 11/08/16 14:15 11/08/16 14:15 General appearance: Present: cooperative, A&O X 3, morbidly obese, pleasant, no acute distress, answers questions appropriately - Head Head exam: Present: atraumatic, normocephalic - Eye Eye exam: Present: PERRL, conjuntiva pink, sclera anicteric Pupils: Present: PERRL - ENT ENT exam: Present: mucous membranes moist - Neck Neck exam general surgery: Present: supple, trachea midline. Absent: lymphadenopathy - Respiratory Respiratory exam: Present: CTAB. Absent: accessory muscle use, rales, rhonchi, wheezes - Cardiovascular Cardiovascular exam: Present: irregular rhythm. Absent: diastolic murmur, gallop, rubs, systolic murmur - GI/Abdominal GI/Abdominal exam: Present: normal bowel sounds, soft, no peritoneal signs. Absent: distended, tenderness - Extremities Exam Extremities exam: Present: warm, radial pulses palpable and symetrical. Absent : calf tenderness, cyanotic, pedal edema - Neurological Exam Neurological exam: Present: alert, oriented X3, no focal deficits. Absent: pronater drift, facial droop, speech deficit - Psychiatric Psychiatric exam: Present: normal affect, normal mood - Skin Skin exam: Present: dry, intact - VTE Reasons for not Prescribing Prophylaxis: Not indicated-Anticoagulated or INR therapeutic <Jose Wadsworth - Last Filed: 11/14/16 19:00> - Discharge Diagnosis (1) Unstable angina Status: Acute (2) Diastolic CHF, chronic Status: Acute (3) Atrial fibrillation Status: Chronic Qualifiers: Atrial fibrillation type: persistent Qualified Code(s): I48.1 - Persistent atrial fibrillation (4) HTN (hypertension) Status: Chronic Qualifiers: Hypertension type: essential hypertension Qualified Code(s): I10 - Essential (primary) hypertension (5) Morbid obesity with BMI of 40.0-44.9, adult Status: Chronic Date of admission: 11/06/16 18:16 Primary care physician: Danny Valenzuela MD Consults: 11/06/16 21:25 Consult to Physician [CONS] Routine Consulting Provider: Kaushik Perez Reason for Consult: CP; recent stress test negative; A fib Call Completed: No Hospital course: Ms. Hudson is a 76 year old female - Time Spent with Patient Total time spent providing and/or coordinating discharge services: 35min - Constitutional Vitals: Temp Pulse Resp BP Pulse Ox 98.3 F 85 16 120/72 94 L 11/08/16 15:35 11/08/16 15:58 11/08/16 15:58 11/08/16 15:58 11/08/16 15:58 - Attending Attestation I examined this patient and my medical decision-making was reviewed with the Resident Physician on 11/08/16. I agree with the documented findings, disposition and treatment plan as described except to the extent set forth below. Ms Hudson is feeling better today. She is ready for discharge today. Exam Alert. Comfortable Heart irreg Lungs clear Plan Pt afebrile and stable for d/c home Follow up outpatient.
[2016-11-08 15:59] VITALS: BP 120/72
--- NOTE | 2016-11-09 07:30 | Invasive Diagnostic Lab ---
Name: Xenia Hudson Date of Study: 11/08/2016 Date: 1940 Ht: 170.0 cm /66.9 in Medical Record#: [id number] Age: 76 Wt: 123. kg / 271.17 lb Account/Order#: [id number] Gender: Female BSA: 2.3 Order #: [id number] Fluoro Dose: 310 mGy BMI: 42.56 Procedure Physician: Kwesi Delatorre MD, FACC Referring MD: Referring MD: Procedures Performed: LEFT HEART CATH Indications: Abnormal Test - Stress Impressions: Moderate atherosclerotic coronary artery disease. The left ventricle is normal and has normal contractility EF 50% Recommendations: Optimal medical therapy of patient's disease. Aggressive risk factor modification. History/Risk Factors: gerd Abnormal Stress Chest Pain Hypertension CHF Procedure Access obtained in the right Radial artery by percutaneous puncture Complications: None, None, None Contrast: Isovue 72ml Closure Device: Mechanical Compression Hemodynamics: Pressures Site Systolic/ A Wave Diastolic/ V Wave End Diastolic/ Mean HR AO 106 79 92 91 AO 106 80 93 90 LV 118 9 16 93 LV 134 16 47 86 AO 134 75 102 88 LV Ventriculography Ejection Method: LV Gram Ejection Fraction: 50% Wall Motion: JAMA Anterobasal Normal Anterolateral Normal Apical: Normal Inferoapical Normal Inferobasal Normal Coronary Dominance: Left Lesion Findings/Interventions * Left Main Coronary Artery The LMCA is angiographically free of disease. * Left Anterior Descending There is a 40-50% stenosis in the Mid LAD - tortuous with systolic bridging * Circumflex The Circumflex is angiographically free of significant disease. The 1st Marginal is angiographically free of disease. The Left PDA is angiographically free of disease. * Right Coronary Artery There is a 40-50% stenosis in the Proximal RCA. Updated by Shima Handy RT (R) on 11/08/2016 1:30:15 PM Kwesi Delatorre MD, FACC electronically signed on 11/09/2016 7:26:50 AM with status of Final
[2016-11-09] MEDS ORDERED: Metoprolol XL (24 HR) Succ 50 MG TAB.ER.24H PO SCH (13:00)
== END 2016-11-08 17:15 | disposition home or self-care (01) ==
LOC: EMEROO 14:36 → 2ANU 14:36
PROVIDERS: ADMIT Internal Medicine; ATTEND Internal Medicine